=== PATIENT | female | born 1985 | race African-American/Black ===

== ENCOUNTER 2016-11-20 10:47 | Inpatient (IN) | payer OTHER, MEDICARE ==
[~2016-11-20] VITALS: Ht 165.1 cm; Wt 61.2 kg
[2016-11-20] MEDS ORDERED: SODIUM CHLORIDE 0.9% 1,000 ML IV ONE (11:20)
[2016-11-20] MEDS ORDERED: ONDANSETRON HCL 4MG/2ML VIAL IV STA (11:20)
[2016-11-20] MEDS ORDERED: MORPHINE SULFATE 4 MG/ML CPJ (NOT FOR IM USE) IV STA (11:20)
[2016-11-20] MEDS ORDERED: PANTOPRAZOLE SODIUM 40 MG/VIAL IV STA (11:20)
[2016-11-20] MEDS ORDERED: METOCLOPRAMIDE HCL 10MG/2ML VIAL IV STA (11:20)
[2016-11-20 12:15] LABS: BASOPHILS % 0.2 % (0.0-2.0); HEMOGLOBIN. 11.9 g/dL (12.0-16.0); LYMPHOCYTES % 11.6 % (20.0-50.0); MEAN CORPUSCULAR HEMOGLOBIN 30.4 pg (28.0-32.0); MEAN CORPUSCULAR VOLUME 89.9 fL (81.0-99.0); MEAN PLATELET VOLUME 9.2 fl (7.4-10.4); NEUTROPHILS % 83.2 % (40.0-76.0); PLATELET 360 x1000/uL (130-400); RED CELL DISTRIBUTION WIDTH 17.3 % (11.6-14.6)
[2016-11-20 12:24] LABS: INR 1.1; PROTHROMBIN TIME 11.4 sec
[2016-11-20] MEDS ORDERED: DIPHENHYDRAMINE 50MG/ML VIAL IV ONE (12:30)
[2016-11-20] MEDS ORDERED: MORPHINE SULFATE 4 MG/ML CPJ (NOT FOR IM USE) IV ONE (12:30)
[2016-11-20 12:32] LABS: CARBON DIOXIDE 22 mEq/L (21-32); CHLORIDE 107 mEq/L (98-107); ETHANOL BLOOD < 10 mg/dL
[2016-11-20 13:34] LABS: CLARITY URINE CLEAR (CLEAR); COLOR URINE YELLOW (YELLOW); GLUCOSE URINE NEGATIVE (NEGATIVE); KETONES URINE NEGATIVE (NEGATIVE); LEUKOCYTE ESTERASE URINE TRACE (NEGATIVE); NITRITE URINE NEGATIVE (NEGATIVE); OCCULT BLOOD URINE NEGATIVE (NEGATIVE); PH URINE 7.5 (4.5-8.0); PROTEIN URINE TRACE (NEGATIVE); SPECIFIC GRAVITY URINE 1.013 (1.005-1.030); UROBILINOGEN URINE 0.2 E.U./dL (0.2-1.0)
[2016-11-20] MEDS ORDERED: ACETAMINOPHEN 325MG TABLET PO PRN (13:45)
[2016-11-20] MEDS ORDERED: CLONIDINE 0.1MG TABLET PO PRN (13:45)
[2016-11-20] MEDS ORDERED: MAGNESIUM/ALUMINUM HYDROXIDE/SIMETHICONE 30ML UDC PO PRN (13:45)
[2016-11-20] MEDS ORDERED: HYDROCODONE/ACETAMINOPHEN 5/325MG TABLET PO PRN (13:45)
[2016-11-20] MEDS ORDERED: ONDANSETRON HCL 4MG/2ML VIAL IV PRN (13:45)
[2016-11-20] MEDS ORDERED: IPRATROPIUM/ALBUTEROL 0.5-3(2.5)MG/3ML NEB INH PRN (13:45)
[2016-11-20 13:56] LABS: *AMPHETAMINES SCREEN URINE NEGATIVE (NEGATIVE); *BARBITURATES SCREEN URINE NEGATIVE (NEGATIVE); *BENZODIAZEPINES SCREEN URINE NEGATIVE (NEGATIVE); *COCAINE SCREEN URINE NEGATIVE (NEGATIVE); CANNABINOID URINE SCREEN NEGATIVE (NEGATIVE); METHADONE URINE SCREEN NEGATIVE (NEGATIVE); PHENCYCLIDINE URINE SCREEN NEGATIVE (NEGATIVE)
[2016-11-20 13:57] LABS: OPIATES URINE SCREEN PRESUMTIVE POSITIVE (NEGATIVE)
[2016-11-20] MEDS ORDERED: ONDANSETRON HCL 4MG/2ML VIAL IV ONE (14:00)
[2016-11-20] MEDS ORDERED: MORPHINE SULFATE 2 MG/ML CPJ (NOT FOR IM USE) IV ONE ×2 (14:00→16:00)
[2016-11-20 15:36] LABS: CREATINE KINASE 59 IU/L (26-192); CREATINE KINASE MB FRACTION < 0.5 ng/mL (0.5-3.6); TROPONIN I < 0.02 ng/mL (0.00-0.04)
[2016-11-20 16:13] LABS: HEPATITIS B SURFACE ANTIGEN NEGATIVE
[2016-11-20 16:41] LABS: HEPATITIS B CORE AB IGM NEGATIVE
[2016-11-20 16:42] LABS: HEPATITIS A AB IGM NEGATIVE (NEGATIVE)
[2016-11-20 16:45] VITALS: BP 124/80
[2016-11-20] MEDS ORDERED: MORPHINE SULFATE 2 MG/ML CPJ (NOT FOR IM USE) IV PRN (17:30)
[2016-11-20] MEDS ORDERED: SODIUM CHLORIDE 0.9% 1,000 ML IV SCH ×2 (17:30→18:45)
[2016-11-20 17:48] VITALS: BP 124/80
[2016-11-20] MEDS ORDERED: ENOXAPARIN 40MG/0.4ML SYR SUBCUT SCH (18:00)
[2016-11-20] MEDS: ONDANSETRON HCL 4MG/2ML VIAL IV PRN (18:46)
[2016-11-20] MEDS: LORAZEPAM 2MG/ML CPJ IV PRN (18:47)
[2016-11-20] MEDS ORDERED: FOLI-43 PO (20:07)
[2016-11-20] MEDS ORDERED: METO-293 PO (20:13)
[2016-11-20] MEDS ORDERED: ZOLP5TAB8 PO (20:13)
[2016-11-20] MEDS ORDERED: MORP15TA67 PO (20:13)
[2016-11-20] MEDS ORDERED: MORP60TA6 PO (20:13)
[2016-11-20] MEDS ORDERED: FAMO20TA8 PO (20:13)
[2016-11-20] MEDS ORDERED: LORA0.5T2 PO (20:13)
[2016-11-20] MEDS ORDERED: PROM12.511 PO (20:13)
[2016-11-20] MEDS ORDERED: DIPH25CA83 PO (20:19)
[2016-11-20] MEDS ORDERED: HYDR500C18 PO (20:19)
[2016-11-20 21:30] VITALS: BP 131/80
[2016-11-20] MEDS: HYDROMORPHONE HCL/PF 2MG/ML CPJ IV PRN ×2 (21:32→23:40)
[2016-11-20 23:40] VITALS: BP 123/74
[2016-11-20] MEDS: ENOXAPARIN 40MG/0.4ML SYR SUBCUT SCH (23:43)
[2016-11-20] MEDS: PIPERACILLIN/TAZ 3.375G PREMIX 50 ML IV SCH (23:43)
[2016-11-20] MEDS: SODIUM CHLORIDE 0.9% 1,000 ML IV SCH (23:45)
[2016-11-21] MEDS: LORAZEPAM 2MG/ML CPJ IV PRN ×3 (00:49→18:12)
[2016-11-21] MEDS: HYDROMORPHONE HCL/PF 2MG/ML CPJ IV PRN ×6 (01:20→23:50)
[2016-11-21 02:18] LABS: CREATINE KINASE 40 IU/L (26-192); CREATINE KINASE MB FRACTION < 0.5 ng/mL (0.5-3.6); TROPONIN I < 0.02 ng/mL (0.00-0.04)
[2016-11-21] MEDS: PIPERACILLIN/TAZ 3.375G PREMIX 50 ML IV SCH ×4 (03:58→21:16)
[2016-11-21] MEDS: ONDANSETRON HCL 4MG/2ML VIAL IV PRN ×2 (04:26→11:04)
[2016-11-21 04:28] VITALS: BP 110/55
[2016-11-21] MEDS ORDERED: SENN-22 PO ×2 (06:18)
[2016-11-21] MEDS ORDERED: SENN-27 PO (06:26)
[2016-11-21 07:05] LABS: HEMATOCRIT. 29.8 % (36.0-48.0); HEMOGLOBIN. 10.1 g/dL (12.0-16.0); MEAN CORPUSCULAR HEMOGLOBIN 30.4 pg (28.0-32.0); MEAN CORPUSCULAR VOLUME 90.1 fL (81.0-99.0); MEAN PLATELET VOLUME 9.8 fl (7.4-10.4); PLATELET 362 x1000/uL (130-400); RED BLOOD CELL COUNT 3.31 mill/uL (4.2-5.4); RED CELL DISTRIBUTION WIDTH 16.8 % (11.6-14.6)
[2016-11-21] MEDS ORDERED: HYDR-3735 PO (07:21)
[2016-11-21] MEDS ORDERED: HYDROXYZINE 25MG TABLET PO PRN (07:30)
[2016-11-21 07:42] LABS: CARBON DIOXIDE 27 mEq/L (21-32); CHLORIDE 105 mEq/L (98-107); HDL CHOLESTEROL 30 mg/dL (40-59); LDL CHOLESTEROL 84 mg/dL (5-100)
[2016-11-21 08:00] VITALS: BP 100/84
[2016-11-21] MEDS: FOLIC ACID 1MG TABLET PO SCH (08:25)
[2016-11-21] MEDS: FAMOTIDINE 20MG TABLET PO SCH (08:26)
[2016-11-21] MEDS: HYDROXYUREA 500MG CAPSULE PO SCH (08:26)
[2016-11-21] MEDS: SENNOSIDES/DOCUSATE SOD 8.6/50MG TABLET PO SCH (08:27)
[2016-11-21] MEDS: KETOROLAC 30MG/ML VIAL IV PRN ×2 (08:29→20:01)
[2016-11-21] MEDS ORDERED: PANTOPRAZOLE SODIUM 40 MG/VIAL IV SCH ×2 (09:00)
[2016-11-21] MEDS ORDERED: FOLIC ACID 1MG TABLET PO SCH ×2 (09:00)
[2016-11-21] MEDS ORDERED: SENNOSIDES 8.6MG TABLET PO SCH (09:00)
[2016-11-21 12:00] VITALS: BP 111/72
[2016-11-21] MEDS: SODIUM CHLORIDE 0.9% 1,000 ML IV SCH (12:06)
[2016-11-21 13:02] LABS: PLATELET ESTIMATE NORMAL
[2016-11-21] MEDS ORDERED: HYDROXYZINE 10 MG TABLET PO PRN (13:45)
[2016-11-21] MEDS: MORPHINE SULFATE 2 MG/ML CPJ (NOT FOR IM USE) IV PRN ×3 (14:00→17:25)
[2016-11-21] MEDS: DIPHENHYDRAMINE 50MG/ML VIAL IV PRN (14:03)
[2016-11-21 16:00] VITALS: BP 135/77
[2016-11-21 19:59] VITALS: BP 100/66
[2016-11-21] MEDS: ENOXAPARIN 40MG/0.4ML SYR SUBCUT SCH (23:31)
[2016-11-21 23:45] VITALS: BP 104/76
[2016-11-22] VITALS (8 sets, daily range): BP systolic 102–144; BP diastolic 64–99
[2016-11-22] MEDS: DIPHENHYDRAMINE 50MG/ML VIAL IV PRN ×4 (00:29→17:11)
[2016-11-22] MEDS: ONDANSETRON HCL 4MG/2ML VIAL IV PRN ×3 (00:29→16:00)
[2016-11-22] MEDS: LORAZEPAM 2MG/ML CPJ IV PRN ×2 (01:09→18:22)
[2016-11-22] MEDS: MORPHINE SULFATE 2 MG/ML CPJ (NOT FOR IM USE) IV PRN ×9 (01:54→20:44)
[2016-11-22] MEDS: PIPERACILLIN/TAZ 3.375G PREMIX 50 ML IV SCH ×4 (02:03→21:42)
[2016-11-22] MEDS: SODIUM CHLORIDE 0.9% 1,000 ML IV SCH ×2 (02:04→15:59)
[2016-11-22] MEDS: HYDROMORPHONE HCL/PF 2MG/ML CPJ IV PRN ×9 (02:50→22:46)
[2016-11-22] MEDS: SENNOSIDES/DOCUSATE SOD 8.6/50MG TABLET PO SCH (08:12)
[2016-11-22] MEDS: FAMOTIDINE 20MG TABLET PO SCH (08:12)
[2016-11-22] MEDS: FOLIC ACID 1MG TABLET PO SCH (08:12)
[2016-11-22] MEDS: HYDROXYUREA 500MG CAPSULE PO SCH (08:12)
[2016-11-22] MEDS ORDERED: DIATR MEGLU/DIATRIZOATE SOLN 30ML PO NR (09:30)
[2016-11-22] MEDS ORDERED: PANTOPRAZOLE 40MG DR TABLET PO SCH ×2 (10:30→11:15)
[2016-11-22 11:13] LABS: UCG SCREEN NEGATIVE
[2016-11-22] MEDS ORDERED: HYDROMORPHONE HCL/PF 2MG/ML CPJ IV PRN (12:00)
[2016-11-22] MEDS ORDERED: IOHEXOL-300 100 ML BOTTLE ONE (13:06)
[2016-11-22] MEDS ORDERED: SODIUM CHLORIDE 0.9% 10ML VIAL ONE (13:06)
[2016-11-22 15:17] LABS: BASOPHILS % 1.1 % (0.0-2.0); EOSINOPHILS % 0.4 % (0.0-5.0); HEMATOCRIT. 28.5 % (36.0-48.0); HEMOGLOBIN. 9.6 g/dL (12.0-16.0); LYMPHOCYTES % 43.5 % (20.0-50.0); MEAN CORPUSCULAR HEMOGLOBIN 30.6 pg (28.0-32.0); MEAN CORPUSCULAR VOLUME 90.6 fL (81.0-99.0); MEAN PLATELET VOLUME 9.7 fl (7.4-10.4); MONOCYTES % 12.6 % (2.0-8.0); NEUTROPHILS % 42.4 % (40.0-76.0); PLATELET 368 x1000/uL (130-400); RED BLOOD CELL COUNT 3.15 mill/uL (4.2-5.4); RED CELL DISTRIBUTION WIDTH 16.4 % (11.6-14.6)
[2016-11-22 15:18] LABS: CHLORIDE 106 mEq/L (98-107)
[2016-11-22 15:26] LABS: CARBON DIOXIDE 25 mEq/L (21-32)
[2016-11-22] MEDS: PANTOPRAZOLE SODIUM 40 MG/VIAL IV SCH (16:00)
[2016-11-22] MEDS ORDERED: POTASSIUM CHLORIDE 20MEQ TABLET SR PO SCH (16:30)
[2016-11-22 21:01] LABS: TOTAL IRON BINDING CAPACITY 168 ug/dL (250-450)
[2016-11-22 21:27] LABS: VITAMIN B12 SERUM 536 pg/mL (211-911)
[2016-11-22 21:39] LABS: FERRITIN 15629 ng/mL (10-291)
[2016-11-22] MEDS: ENOXAPARIN 40MG/0.4ML SYR SUBCUT SCH (22:55)
[2016-11-23] MEDS: ONDANSETRON HCL 4MG/2ML VIAL IV PRN ×5 (00:15→23:24)
[2016-11-23] MEDS: MORPHINE SULFATE 2 MG/ML CPJ (NOT FOR IM USE) IV PRN ×4 (00:20→12:19)
[2016-11-23] MEDS: DIPHENHYDRAMINE 50MG/ML VIAL IV PRN ×4 (00:20→21:21)
[2016-11-23] MEDS: HYDROMORPHONE HCL/PF 2MG/ML CPJ IV PRN ×8 (01:36→23:27)
[2016-11-23] MEDS: PIPERACILLIN/TAZ 3.375G PREMIX 50 ML IV SCH ×4 (02:40→20:30)
[2016-11-23 04:00] VITALS: BP 100/60
[2016-11-23] MEDS: SODIUM CHLORIDE 0.9% 1,000 ML IV SCH ×2 (05:56→18:05)
[2016-11-23 08:00] VITALS: BP 113/72
[2016-11-23] MEDS: FOLIC ACID 1MG TABLET PO SCH (08:36)
[2016-11-23] MEDS: PANTOPRAZOLE SODIUM 40 MG/VIAL IV SCH ×2 (08:36→17:55)
[2016-11-23] MEDS: HYDROXYUREA 500MG CAPSULE PO SCH (08:37)
[2016-11-23] MEDS: SENNOSIDES/DOCUSATE SOD 8.6/50MG TABLET PO SCH ×3 (08:37→17:55)
[2016-11-23] MEDS: LORAZEPAM 2MG/ML CPJ IV PRN ×3 (08:37→23:24)
[2016-11-23] MEDS ORDERED: NA PHOS,M-B/NA PHOS,DI-BA ENEMA 118ML PR PRN (09:30)
[2016-11-23 12:00] VITALS: BP 97/56
[2016-11-23] MEDS: METOCLOPRAMIDE HCL 10MG TABLET PO PRN (12:21)
[2016-11-23] MEDS ORDERED: NALOXONE INJ IV PRN (14:00)
[2016-11-23] MEDS ORDERED: DIPHENHYDRAMINE INJ IV PRN (14:00)
[2016-11-23] MEDS: MORPHINE PCA 50MG/50ML IV PRN (15:09)
[2016-11-23 20:00] VITALS: BP 111/61
[2016-11-23] MEDS: ZOLPIDEM TARTRATE 5MG TABLET PO SCH (20:22)
[2016-11-23] MEDS: ENOXAPARIN 40MG/0.4ML SYR SUBCUT SCH (23:28)
[2016-11-24] VITALS: BP 113/68
[2016-11-24] MEDS: DIPHENHYDRAMINE 50MG/ML VIAL IV PRN ×6 (02:28→23:39)
[2016-11-24] MEDS: PIPERACILLIN/TAZ 3.375G PREMIX 50 ML IV SCH ×2 (02:29→10:12)
[2016-11-24] MEDS: HYDROMORPHONE HCL/PF 2MG/ML CPJ IV PRN ×8 (02:31→23:42)
[2016-11-24 04:25] VITALS: BP 110/63
[2016-11-24] MEDS: ONDANSETRON HCL 4MG/2ML VIAL IV PRN ×3 (04:44→17:17)
[2016-11-24 08:00] VITALS: BP 113/73
[2016-11-24] MEDS: LORAZEPAM 2MG/ML CPJ IV PRN ×5 (10:04→23:39)
[2016-11-24] MEDS: SENNOSIDES/DOCUSATE SOD 8.6/50MG TABLET PO SCH ×2 (10:11→17:15)
[2016-11-24] MEDS: PANTOPRAZOLE SODIUM 40 MG/VIAL IV SCH (10:11)
[2016-11-24] MEDS: FOLIC ACID 1MG TABLET PO SCH (10:11)
[2016-11-24] MEDS: METOCLOPRAMIDE HCL 10MG TABLET PO PRN (10:11)
[2016-11-24] MEDS: MORPHINE PCA 50MG/50ML IV PRN (10:47)
[2016-11-24] MEDS: HYDROXYUREA 500MG CAPSULE PO SCH (11:29)
[2016-11-24] MEDS: SODIUM CHLORIDE 0.9% 1,000 ML IV SCH ×2 (11:30→23:38)
[2016-11-24 11:44] VITALS: BP 99/59
[2016-11-24 12:06] LABS: BASOPHILS % 1.2 % (0.0-2.0); EOSINOPHILS % 3.9 % (0.0-5.0); HEMATOCRIT. 26.4 % (36.0-48.0); HEMOGLOBIN. 9.2 g/dL (12.0-16.0); LYMPHOCYTES % 32.2 % (20.0-50.0); MEAN CORPUSCULAR HEMOGLOBIN 30.9 pg (28.0-32.0); MEAN CORPUSCULAR VOLUME 88.8 fL (81.0-99.0); MEAN PLATELET VOLUME 9.4 fl (7.4-10.4); MONOCYTES % 11.6 % (2.0-8.0); NEUTROPHILS % 51.1 % (40.0-76.0); PLATELET 435 x1000/uL (130-400); RED BLOOD CELL COUNT 2.97 mill/uL (4.2-5.4); RED CELL DISTRIBUTION WIDTH 16.8 % (11.6-14.6)
[2016-11-24 12:17] LABS: CARBON DIOXIDE 27 mEq/L (21-32); CHLORIDE 106 mEq/L (98-107)
[2016-11-24] MEDS ORDERED: METOCLOPRAMIDE HCL 10MG TABLET PO NR (13:00)
[2016-11-24] MEDS ORDERED: DIPHENHYDRAMINE 50MG/ML VIAL IV PRN ×2 (14:00)
[2016-11-24 16:00] VITALS: BP 102/69
[2016-11-24] MEDS: METOCLOPRAMIDE HCL 10MG TABLET PO SCH ×2 (17:15→23:38)
[2016-11-24] MEDS ORDERED: MORPHINE PCA 50MG/50ML IV PRN (19:30)
[2016-11-24 20:00] VITALS: BP 110/65
[2016-11-24] MEDS: ZOLPIDEM TARTRATE 5MG TABLET PO SCH (20:34)
[2016-11-24] MEDS: PANTOPRAZOLE 40MG DR TABLET PO SCH (20:34)
[2016-11-24] MEDS: ENOXAPARIN 40MG/0.4ML SYR SUBCUT SCH (23:38)
[2016-11-25] VITALS: BP 100/60
[2016-11-25] MEDS: LORAZEPAM 2MG/ML CPJ IV PRN ×7 (02:41→21:12)
[2016-11-25] MEDS: DIPHENHYDRAMINE 50MG/ML VIAL IV PRN ×7 (02:41→21:12)
[2016-11-25] MEDS: ONDANSETRON HCL 4MG/2ML VIAL IV PRN ×2 (02:41→15:48)
[2016-11-25] MEDS: HYDROMORPHONE HCL/PF 2MG/ML CPJ IV PRN ×7 (02:43→21:12)
[2016-11-25] MEDS: METOCLOPRAMIDE HCL 10MG TABLET PO SCH ×3 (06:10→17:49)
[2016-11-25] MEDS: PANTOPRAZOLE 40MG DR TABLET PO SCH (06:10)
[2016-11-25 08:00] VITALS: BP 99/60
[2016-11-25] MEDS: FOLIC ACID 1MG TABLET PO SCH (08:47)
[2016-11-25] MEDS: SENNOSIDES/DOCUSATE SOD 8.6/50MG TABLET PO SCH ×2 (08:47→17:49)
[2016-11-25] MEDS: HYDROXYUREA 500MG CAPSULE PO SCH (08:48)
[2016-11-25 12:00] VITALS: BP 113/69
[2016-11-25] MEDS ORDERED: POTASSIUM CHLORIDE 20MEQ TABLET SR PO NR (12:00)
[2016-11-25] MEDS: SODIUM CHLORIDE 0.9% 1,000 ML IV SCH (12:30)
[2016-11-25 16:00] VITALS: BP 102/58
[2016-11-25] MEDS: ZOLPIDEM TARTRATE 5MG TABLET PO SCH (21:08)
[2016-11-25 21:35] VITALS: BP 94/58
[2016-11-25] MEDS: ENOXAPARIN 40MG/0.4ML SYR SUBCUT SCH (22:49)
[2016-11-26] VITALS: BP 116/80
[2016-11-26] MEDS: METOCLOPRAMIDE HCL 10MG TABLET PO SCH ×2 (00:04→05:40)
[2016-11-26] MEDS: DIPHENHYDRAMINE 50MG/ML VIAL IV PRN ×7 (00:06→20:45)
[2016-11-26] MEDS: LORAZEPAM 2MG/ML CPJ IV PRN ×7 (00:09→20:29)
[2016-11-26] MEDS: HYDROMORPHONE HCL/PF 2MG/ML CPJ IV PRN ×7 (00:09→20:51)
[2016-11-26] MEDS: MORPHINE PCA 50 ML IV PRN ×3 (00:45→21:59)
[2016-11-26] MEDS: SODIUM CHLORIDE 0.9% 1,000 ML IV SCH ×2 (03:08→16:30)
[2016-11-26] MEDS: ONDANSETRON HCL 4MG/2ML VIAL IV PRN ×3 (03:34→20:29)
[2016-11-26 04:00] VITALS: BP 105/56
[2016-11-26 08:00] VITALS: BP 95/57
[2016-11-26] MEDS ORDERED: FAMOTIDINE 20MG TABLET PO SCH (09:00)
[2016-11-26] MEDS: HYDROXYUREA 500MG CAPSULE PO SCH (09:41)
[2016-11-26] MEDS: SENNOSIDES/DOCUSATE SOD 8.6/50MG TABLET PO SCH ×2 (09:41→16:29)
[2016-11-26] MEDS: FOLIC ACID 1MG TABLET PO SCH (09:41)
[2016-11-26 12:00] VITALS: BP 106/69
[2016-11-26] MEDS ORDERED: DOCUSATE SODIUM 250MG CAPSULE PO PRN (13:30)
[2016-11-26 16:00] VITALS: BP 103/67
[2016-11-26] MEDS: METOCLOPRAMIDE HCL 10MG/2ML VIAL IV SCH (16:30)
[2016-11-26 20:00] VITALS: BP 106/67
[2016-11-26] MEDS: PANTOPRAZOLE SODIUM 40 MG/VIAL IV SCH (20:27)
[2016-11-26] MEDS: ZOLPIDEM TARTRATE 5MG TABLET PO SCH (20:28)
[2016-11-27] VITALS (7 sets, daily range): BP systolic 100–176; BP diastolic 66–89
[2016-11-27] MEDS: ENOXAPARIN 40MG/0.4ML SYR SUBCUT SCH ×2 (00:18→21:42)
[2016-11-27] MEDS: LORAZEPAM 2MG/ML CPJ IV PRN ×7 (00:19→21:39)
[2016-11-27] MEDS: DIPHENHYDRAMINE 50MG/ML VIAL IV PRN ×7 (00:22→21:40)
[2016-11-27] MEDS: HYDROMORPHONE HCL/PF 2MG/ML CPJ IV PRN ×9 (00:26→21:39)
[2016-11-27] MEDS: SODIUM CHLORIDE 0.9% 1,000 ML IV SCH ×3 (06:24→23:07)
[2016-11-27] MEDS: PANTOPRAZOLE SODIUM 40 MG/VIAL IV SCH ×2 (08:08→21:03)
[2016-11-27] MEDS: METOCLOPRAMIDE HCL 10MG/2ML VIAL IV SCH ×3 (08:09→15:50)
[2016-11-27] MEDS: FOLIC ACID 1MG TABLET PO SCH (08:09)
[2016-11-27] MEDS: SENNOSIDES/DOCUSATE SOD 8.6/50MG TABLET PO SCH ×2 (08:09→15:50)
[2016-11-27] MEDS: HYDROXYUREA 500MG CAPSULE PO SCH (09:17)
[2016-11-27] MEDS: MORPHINE PCA 50 ML IV PRN ×2 (09:47→20:43)
[2016-11-27] MEDS ORDERED: SORBITOL 70% SOLN 30ML PO NR (16:30)
[2016-11-27 17:19] LABS: BASOPHILS % 1.3 % (0.0-2.0); EOSINOPHILS % 4.5 % (0.0-5.0); HEMATOCRIT. 25.1 % (36.0-48.0); HEMOGLOBIN. 8.5 g/dL (12.0-16.0); LYMPHOCYTES % 35.6 % (20.0-50.0); MEAN CORPUSCULAR HEMOGLOBIN 30.9 pg (28.0-32.0); MEAN CORPUSCULAR VOLUME 90.8 fL (81.0-99.0); MEAN PLATELET VOLUME 8.6 fl (7.4-10.4); MONOCYTES % 10.8 % (2.0-8.0); NEUTROPHILS % 47.8 % (40.0-76.0); PLATELET 472 x1000/uL (130-400); RED BLOOD CELL COUNT 2.76 mill/uL (4.2-5.4); RED CELL DISTRIBUTION WIDTH 17.2 % (11.6-14.6)
[2016-11-27 17:44] LABS: CARBON DIOXIDE 26 mEq/L (21-32); CHLORIDE 108 mEq/L (98-107)
[2016-11-27] MEDS: ZOLPIDEM TARTRATE 5MG TABLET PO SCH (21:04)
[2016-11-27] MEDS: ONDANSETRON INJ IV PRN (21:48)
[2016-11-28] VITALS (7 sets, daily range): BP systolic 101–116; BP diastolic 62–77
[2016-11-28] MEDS: HYDROMORPHONE HCL/PF 2MG/ML CPJ IV PRN ×8 (00:27→21:11)
[2016-11-28] MEDS: DIPHENHYDRAMINE 50MG/ML VIAL IV PRN ×7 (02:39→21:10)
[2016-11-28] MEDS: LORAZEPAM 2MG/ML CPJ IV PRN ×7 (02:39→21:24)
[2016-11-28 06:53] LABS: BASOPHILS % 1.1 % (0.0-2.0); EOSINOPHILS % 3.1 % (0.0-5.0); HEMATOCRIT. 24.7 % (36.0-48.0); HEMOGLOBIN. 8.5 g/dL (12.0-16.0); LYMPHOCYTES % 34.7 % (20.0-50.0); MEAN CORPUSCULAR HEMOGLOBIN 31.4 pg (28.0-32.0); MEAN PLATELET VOLUME 9.1 fl (7.4-10.4); MONOCYTES % 10.7 % (2.0-8.0); NEUTROPHILS % 50.4 % (40.0-76.0); PLATELET 484 x1000/uL (130-400); RED BLOOD CELL COUNT 2.71 mill/uL (4.2-5.4); RED CELL DISTRIBUTION WIDTH 17.3 % (11.6-14.6)
[2016-11-28] MEDS: METOCLOPRAMIDE HCL 10MG/2ML VIAL IV SCH ×3 (08:37→17:58)
[2016-11-28] MEDS: SENNOSIDES/DOCUSATE SOD 8.6/50MG TABLET PO SCH ×2 (08:37→17:58)
[2016-11-28] MEDS: FOLIC ACID 1MG TABLET PO SCH (08:37)
[2016-11-28] MEDS: PANTOPRAZOLE SODIUM 40 MG/VIAL IV SCH ×2 (08:37→21:08)
[2016-11-28] MEDS: HYDROXYUREA 500MG CAPSULE PO SCH (08:38)
[2016-11-28] MEDS: MORPHINE PCA 50 ML IV PRN ×2 (12:28→22:11)
[2016-11-28] MEDS ORDERED: IRON SUCROSE COMPLEX 100 MG/5 ML ML IV SCH (13:00)
[2016-11-28 13:07] LABS: HGB A 72.6 % (94.0-98.0); HGB A2 2.9 % (0.7-3.1); HGB F 6.4 % (0.0-2.0); HGB S 18.1 % (0.0); HGB SOLUBILITY Positive (Negative)
[2016-11-28] MEDS: SODIUM CHLORIDE 0.9% 1,000 ML IV SCH (14:28)
[2016-11-28] MEDS ORDERED: FUROSEMIDE 40MG/4ML VIAL IVP SCH (14:30)
[2016-11-28] MEDS ORDERED: DIPHENHYDRAMINE 50MG/ML VIAL IV SCH (14:30)
[2016-11-28] MEDS ORDERED: ACETAMINOPHEN 325MG TABLET PO SCH (14:30)
[2016-11-28] MEDS: ZOLPIDEM TARTRATE 5MG TABLET PO SCH (21:09)
[2016-11-28] MEDS: ONDANSETRON INJ IV PRN (23:52)
[2016-11-28] MEDS: ENOXAPARIN 40MG/0.4ML SYR SUBCUT SCH (23:52)
[2016-11-29] VITALS (12 sets, daily range): BP systolic 99–121; BP diastolic 50–77
[2016-11-29] MEDS: HYDROMORPHONE HCL/PF 2MG/ML CPJ IV PRN ×8 (00:09→23:55)
[2016-11-29] MEDS: DIPHENHYDRAMINE 50MG/ML VIAL IV PRN ×8 (00:29→23:55)
[2016-11-29] MEDS: LORAZEPAM 2MG/ML CPJ IV PRN ×8 (00:29→23:55)
[2016-11-29] MEDS: SODIUM CHLORIDE 0.9% 1,000 ML IV SCH ×2 (06:19→20:20)
[2016-11-29] MEDS: SENNOSIDES/DOCUSATE SOD 8.6/50MG TABLET PO SCH ×2 (08:06→16:56)
[2016-11-29] MEDS: HYDROXYUREA 500MG CAPSULE PO SCH (08:06)
[2016-11-29] MEDS: FOLIC ACID 1MG TABLET PO SCH (08:07)
[2016-11-29] MEDS: PANTOPRAZOLE SODIUM 40 MG/VIAL IV SCH ×2 (08:07→20:51)
[2016-11-29] MEDS: METOCLOPRAMIDE HCL 10MG/2ML VIAL IV SCH ×3 (08:09→16:56)
[2016-11-29] MEDS ORDERED: SODIUM CHLORIDE 0.9% IV NR (09:00)
[2016-11-29] MEDS ORDERED: DEFEROXAMINE MESYLATE IV NR (09:00)
[2016-11-29 11:49] LABS: BASOPHILS % 0.9 % (0.0-2.0); EOSINOPHILS % 3.6 % (0.0-5.0); HEMATOCRIT. 27.3 % (36.0-48.0); HEMOGLOBIN. 9.5 g/dL (12.0-16.0); LYMPHOCYTES % 35.2 % (20.0-50.0); MEAN CORPUSCULAR HEMOGLOBIN 31.1 pg (28.0-32.0); MEAN CORPUSCULAR VOLUME 89.7 fL (81.0-99.0); MONOCYTES % 9.7 % (2.0-8.0); NEUTROPHILS % 50.6 % (40.0-76.0); RED BLOOD CELL COUNT 3.05 mill/uL (4.2-5.4); RED CELL DISTRIBUTION WIDTH 16.8 % (11.6-14.6)
[2016-11-29] MEDS ORDERED: MORPHINE SULFATE 4 MG/ML CPJ (NOT FOR IM USE) IV NR (12:15)
[2016-11-29] MEDS: MORPHINE PCA 50 ML IV PRN ×2 (12:28→20:55)
[2016-11-29] MEDS: DOCUSATE SODIUM 250MG CAPSULE PO SCH (16:56)
[2016-11-29] MEDS: LACTULOSE 20G/30ML UDC PO PRN (16:56)
[2016-11-29] MEDS ORDERED: FUROSEMIDE 40MG/4ML VIAL IVP NR (18:30)
[2016-11-29] MEDS: NYSTATIN 100,000 UNITS/ML 5ML UDC SSW SCH ×2 (18:43→23:55)
[2016-11-29 19:14] LABS: BASOPHILS % 0.8 % (0.0-2.0); EOSINOPHILS % 3.8 % (0.0-5.0); HEMATOCRIT. 27.6 % (36.0-48.0); HEMOGLOBIN. 9.3 g/dL (12.0-16.0); MEAN CORPUSCULAR HEMOGLOBIN 30.3 pg (28.0-32.0); MEAN CORPUSCULAR VOLUME 89.7 fL (81.0-99.0); MEAN PLATELET VOLUME 8.6 fl (7.4-10.4); MONOCYTES % 9.9 % (2.0-8.0); NEUTROPHILS % 50.5 % (40.0-76.0); PLATELET 175 x1000/uL (130-400); RED BLOOD CELL COUNT 3.08 mill/uL (4.2-5.4); RED CELL DISTRIBUTION WIDTH 16.8 % (11.6-14.6)
[2016-11-29] MEDS: METRONIDAZOLE 500MG TABLET PO SCH (20:50)
[2016-11-29] MEDS: ZOLPIDEM TARTRATE 5MG TABLET PO SCH (20:51)
[2016-11-29] MEDS: ENOXAPARIN 40MG/0.4ML SYR SUBCUT SCH (23:56)
[2016-11-30] VITALS (11 sets, daily range): BP systolic 99–115; BP diastolic 34–73
[2016-11-30] MEDS: HYDROMORPHONE HCL/PF 2MG/ML CPJ IV PRN ×5 (02:52→17:56)
[2016-11-30] MEDS: DIPHENHYDRAMINE 50MG/ML VIAL IV PRN ×5 (02:52→17:54)
[2016-11-30] MEDS: LORAZEPAM 2MG/ML CPJ IV PRN ×4 (02:52→17:45)
[2016-11-30] MEDS: MORPHINE PCA 50 ML IV PRN ×3 (05:04→21:22)
[2016-11-30] MEDS: SODIUM CHLORIDE 0.9% 1,000 ML IV SCH ×3 (05:10→23:00)
[2016-11-30] MEDS: NYSTATIN 100,000 UNITS/ML 5ML UDC SSW SCH ×3 (05:46→17:39)
[2016-11-30] MEDS: HYDROXYUREA 500MG CAPSULE PO SCH ×2 (09:00→12:56)
[2016-11-30] MEDS: PANTOPRAZOLE SODIUM 40 MG/VIAL IV SCH ×2 (09:20→20:56)
[2016-11-30] MEDS: SENNOSIDES/DOCUSATE SOD 8.6/50MG TABLET PO SCH ×2 (09:21→17:39)
[2016-11-30] MEDS: METRONIDAZOLE 500MG TABLET PO SCH ×2 (09:21→20:56)
[2016-11-30] MEDS: FOLIC ACID 1MG TABLET PO SCH (09:21)
[2016-11-30] MEDS: DOCUSATE SODIUM 250MG CAPSULE PO SCH ×2 (09:21→17:39)
[2016-11-30] MEDS: METOCLOPRAMIDE HCL 10MG TABLET PO PRN (09:21)
[2016-11-30] MEDS: METOCLOPRAMIDE HCL 10MG/2ML VIAL IV SCH ×3 (09:39→17:39)
[2016-11-30] MEDS ORDERED: HYDROXYZINE 25MG TABLET PO PRN (11:00)
[2016-11-30] MEDS ORDERED: LEVOFLOXACIN 500MG TABLET PO NR (13:00)
[2016-11-30] MEDS ORDERED: MAGNESIUM CITRATE 300ML SOLUTION PO ONE (15:15)
[2016-11-30] MEDS ORDERED: FUROSEMIDE 40MG/4ML VIAL IVP NR (15:30)
[2016-11-30 17:00] LABS: HEMATOCRIT. 26.8 % (36.0-48.0); HEMOGLOBIN. 9.6 g/dL (12.0-16.0); MEAN CORPUSCULAR HEMOGLOBIN 31.8 pg (28.0-32.0); MEAN CORPUSCULAR VOLUME 89.3 fL (81.0-99.0); PLATELET 401 x1000/uL (130-400); RED BLOOD CELL COUNT 3.01 mill/uL (4.2-5.4); RED CELL DISTRIBUTION WIDTH 17.7 % (11.6-14.6)
[2016-11-30 17:17] LABS: CARBON DIOXIDE 28 mEq/L (21-32); CHLORIDE 105 mEq/L (98-107)
[2016-11-30 18:11] LABS: PLATELET ESTIMATE NORMAL
[2016-11-30] MEDS: ZOLPIDEM TARTRATE 5MG TABLET PO SCH (20:56)
[2016-11-30] MEDS: ONDANSETRON INJ IV PRN (21:30)
[2016-12-01] VITALS (17 sets, daily range): BP systolic 98–137; BP diastolic 58–82
[2016-12-01] MEDS: LORAZEPAM 2MG/ML CPJ IV PRN ×9 (00:01→23:33)
[2016-12-01] MEDS: DIPHENHYDRAMINE 50MG/ML VIAL IV PRN ×9 (00:01→23:32)
[2016-12-01] MEDS: HYDROMORPHONE HCL/PF 2MG/ML CPJ IV PRN ×9 (00:05→23:33)
[2016-12-01] MEDS: NYSTATIN 100,000 UNITS/ML 5ML UDC SSW SCH ×5 (00:07→23:32)
[2016-12-01] MEDS: ENOXAPARIN 40MG/0.4ML SYR SUBCUT SCH ×2 (00:08→23:34)
[2016-12-01] MEDS: LACTULOSE 20G/30ML UDC PO PRN ×2 (03:27→20:29)
[2016-12-01] MEDS: ONDANSETRON INJ IV PRN (03:28)
[2016-12-01] MEDS: MORPHINE PCA 50 ML IV PRN ×3 (04:37→19:04)
[2016-12-01] MEDS: SENNOSIDES/DOCUSATE SOD 8.6/50MG TABLET PO SCH ×2 (08:30→17:27)
[2016-12-01] MEDS: DOCUSATE SODIUM 250MG CAPSULE PO SCH ×2 (08:31→17:27)
[2016-12-01] MEDS: METOCLOPRAMIDE HCL 10MG/2ML VIAL IV SCH ×3 (08:31→17:28)
[2016-12-01] MEDS: FOLIC ACID 1MG TABLET PO SCH (08:31)
[2016-12-01] MEDS: PANTOPRAZOLE SODIUM 40 MG/VIAL IV SCH ×2 (08:34→20:29)
[2016-12-01] MEDS: METRONIDAZOLE 500MG TABLET PO SCH ×2 (08:36→20:29)
[2016-12-01] MEDS: LEVOFLOXACIN 500MG TABLET PO SCH (11:36)
[2016-12-01] MEDS: SODIUM CHLORIDE 0.9% 1,000 ML IV SCH (11:38)
[2016-12-01] MEDS ORDERED: FUROSEMIDE 20MG/2ML VIAL IVP NR (18:27)
[2016-12-01] MEDS: ZOLPIDEM TARTRATE 5MG TABLET PO SCH (20:30)
[2016-12-01 23:35] LABS: HEMATOCRIT 35.9 % (36.0-48.0); HEMOGLOBIN 12.2 g/dL (12.0-16.0); MEAN CORPUSCULAR HEMOGLOBIN 29.4 pg (28.0-32.0); MEAN CORPUSCULAR VOLUME 86.7 fL (81.0-99.0); PLATELET 394 x1000/uL (130-400); RED BLOOD CELL COUNT 4.14 mill/uL (4.2-5.4); RED CELL DISTRIBUTION WIDTH 18.4 % (11.6-14.6)
[2016-12-02] VITALS (11 sets, daily range): BP systolic 100–132; BP diastolic 56–82
[2016-12-02] MEDS: MORPHINE PCA 50 ML IV PRN ×4 (02:13→22:55)
[2016-12-02] MEDS: LORAZEPAM 2MG/ML CPJ IV PRN ×7 (02:34→21:54)
[2016-12-02] MEDS: DIPHENHYDRAMINE 50MG/ML VIAL IV PRN ×7 (02:34→21:54)
[2016-12-02] MEDS: HYDROMORPHONE HCL/PF 2MG/ML CPJ IV PRN ×8 (02:34→21:55)
[2016-12-02] MEDS: ONDANSETRON INJ IV PRN (02:34)
[2016-12-02] MEDS: SODIUM CHLORIDE 0.9% 1,000 ML IV SCH ×2 (02:47→15:52)
[2016-12-02] MEDS: NYSTATIN 100,000 UNITS/ML 5ML UDC SSW SCH ×3 (05:36→17:59)
[2016-12-02 06:30] LABS: HEMATOCRIT 32.4 % (36.0-48.0); HEMOGLOBIN 11.1 g/dL (12.0-16.0); MEAN CORPUSCULAR HEMOGLOBIN 29.8 pg (28.0-32.0); MEAN CORPUSCULAR VOLUME 86.9 fL (81.0-99.0); PLATELET 361 x1000/uL (130-400); RED BLOOD CELL COUNT 3.73 mill/uL (4.2-5.4); RED CELL DISTRIBUTION WIDTH 18.5 % (11.6-14.6)
[2016-12-02 06:46] LABS: HCG SCREEN POSITIVE
[2016-12-02 06:57] LABS: CARBON DIOXIDE 24 mEq/L (21-32); CHLORIDE 105 mEq/L (98-107)
[2016-12-02] MEDS ORDERED: LORAZEPAM 2MG/ML CPJ IV SCH (08:00)
[2016-12-02] MEDS ORDERED: DIPHENHYDRAMINE 50MG/ML VIAL IV ONE (08:00)
[2016-12-02] MEDS ORDERED: HYDROMORPHONE HCL/PF 2MG/ML CPJ IV SCH (08:00)
[2016-12-02] MEDS: LEVOFLOXACIN 500MG TABLET PO SCH (10:32)
[2016-12-02] MEDS: METOCLOPRAMIDE HCL 10MG/2ML VIAL IV SCH ×3 (10:33→17:59)
[2016-12-02] MEDS: SENNOSIDES/DOCUSATE SOD 8.6/50MG TABLET PO SCH ×2 (10:34→17:00)
[2016-12-02] MEDS: METRONIDAZOLE 500MG TABLET PO SCH ×2 (10:34→21:31)
[2016-12-02] MEDS: PANTOPRAZOLE SODIUM 40 MG/VIAL IV SCH (10:34)
[2016-12-02] MEDS: FOLIC ACID 1MG TABLET PO SCH (10:34)
[2016-12-02] MEDS: DOCUSATE SODIUM 250MG CAPSULE PO SCH ×2 (10:34→17:00)
[2016-12-02] MEDS: HYDROXYUREA 500MG CAPSULE PO SCH (10:35)
[2016-12-02 13:03] LABS: TOTAL IRON BINDING CAPACITY 185 ug/dL (250-450)
[2016-12-02] MEDS: SIMETHICONE 80MG TABLET CHEW PO SCH ×3 (13:13→21:31)
[2016-12-02] MEDS ORDERED: MAGNESIUM CITRATE 300ML SOLUTION PO NR (16:30)
[2016-12-02] MEDS: OMEPRAZOLE 20MG CAPSULE EXTENDED RELEASE PO SCH (17:59)
[2016-12-02] MEDS: LACTULOSE 20G/30ML UDC PO PRN (17:59)
[2016-12-02] MEDS ORDERED: ZOLPIDEM TARTRATE 5MG TABLET PO PRN (21:00)
[2016-12-02] MEDS: ENOXAPARIN 40MG/0.4ML SYR SUBCUT SCH (23:03)
[2016-12-03] VITALS (10 sets, daily range): BP systolic 107–126; BP diastolic 64–81
[2016-12-03] MEDS: NYSTATIN 100,000 UNITS/ML 5ML UDC SSW SCH ×5 (00:52→23:41)
[2016-12-03] MEDS: LORAZEPAM 2MG/ML CPJ IV PRN ×8 (00:55→21:44)
[2016-12-03] MEDS: DIPHENHYDRAMINE 50MG/ML VIAL IV PRN ×8 (00:55→21:45)
[2016-12-03] MEDS: HYDROMORPHONE HCL/PF 2MG/ML CPJ IV PRN ×8 (00:58→21:45)
[2016-12-03] MEDS: MORPHINE PCA 50 ML IV PRN (04:50)
[2016-12-03] MEDS: LACTULOSE 20G/30ML UDC PO PRN ×2 (06:38→14:38)
[2016-12-03] MEDS: MORPHINE SULFATE 15MG TABLET SR PO SCH ×3 (06:42→21:41)
[2016-12-03] MEDS: OMEPRAZOLE 20MG CAPSULE EXTENDED RELEASE PO SCH ×2 (06:45→17:39)
[2016-12-03] MEDS: METRONIDAZOLE 500MG TABLET PO SCH ×3 (06:45→21:38)
[2016-12-03] MEDS: SODIUM CHLORIDE 0.9% 1,000 ML IV SCH ×2 (06:53→21:49)
[2016-12-03] MEDS: SIMETHICONE 80MG TABLET CHEW PO SCH ×4 (08:36→21:38)
[2016-12-03] MEDS: METOCLOPRAMIDE HCL 10MG/2ML VIAL IV SCH ×3 (08:36→17:39)
[2016-12-03] MEDS: DOCUSATE SODIUM 250MG CAPSULE PO SCH ×2 (08:36→17:39)
[2016-12-03] MEDS: FOLIC ACID 1MG TABLET PO SCH (08:36)
[2016-12-03] MEDS: SENNOSIDES/DOCUSATE SOD 8.6/50MG TABLET PO SCH ×2 (08:36→17:39)
[2016-12-03] MEDS ORDERED: FOLIC ACID 1MG TABLET PO SCH (10:00)
[2016-12-03 10:02] LABS: AMMONIA 56 uMol/L (<32)
[2016-12-03] MEDS: MORPHINE SULFATE 4 MG/ML CPJ (NOT FOR IM USE) IV PRN ×2 (17:40→20:15)
[2016-12-03] MEDS ORDERED: MAGNESIUM CITRATE 300ML SOLUTION PO NR (17:45)
[2016-12-03] MEDS: ENOXAPARIN 40MG/0.4ML SYR SUBCUT SCH (23:41)
[2016-12-04] VITALS (10 sets, daily range): BP systolic 107–134; BP diastolic 59–83
[2016-12-04] MEDS: MORPHINE SULFATE 4 MG/ML CPJ (NOT FOR IM USE) IV PRN ×6 (00:42→23:49)
[2016-12-04] MEDS: LORAZEPAM 2MG/ML CPJ IV PRN ×9 (00:52→23:48)
[2016-12-04] MEDS: DIPHENHYDRAMINE 50MG/ML VIAL IV PRN ×9 (00:52→23:48)
[2016-12-04] MEDS: HYDROMORPHONE HCL/PF 2MG/ML CPJ IV PRN ×9 (00:53→23:50)
[2016-12-04] MEDS: NYSTATIN 100,000 UNITS/ML 5ML UDC SSW SCH ×4 (06:52→23:45)
[2016-12-04] MEDS: OMEPRAZOLE 20MG CAPSULE EXTENDED RELEASE PO SCH ×2 (06:52→17:52)
[2016-12-04] MEDS: MORPHINE SULFATE 15MG TABLET SR PO SCH ×3 (06:53→21:24)
[2016-12-04] MEDS: METRONIDAZOLE 500MG TABLET PO SCH ×2 (07:03→14:00)
[2016-12-04] MEDS: METOCLOPRAMIDE HCL 10MG/2ML VIAL IV SCH ×3 (08:20→17:53)
[2016-12-04] MEDS: SENNOSIDES/DOCUSATE SOD 8.6/50MG TABLET PO SCH ×2 (08:21→17:52)
[2016-12-04] MEDS: DOCUSATE SODIUM 250MG CAPSULE PO SCH ×2 (08:21→17:55)
[2016-12-04] MEDS: SIMETHICONE 80MG TABLET CHEW PO SCH ×4 (08:21→21:00)
[2016-12-04] MEDS: FOLIC ACID 1MG TABLET PO SCH (08:21)
[2016-12-04 12:11] LABS: HEMATOCRIT. 33.6 % (36.0-48.0); HEMOGLOBIN. 11.4 g/dL (12.0-16.0); MEAN CORPUSCULAR HEMOGLOBIN 29.9 pg (28.0-32.0); MEAN CORPUSCULAR VOLUME 88.5 fL (81.0-99.0)
[2016-12-04 12:12] LABS: BASOPHILS % 0.8 % (0.0-2.0); EOSINOPHILS % 2.3 % (0.0-5.0); LYMPHOCYTES % 33.4 % (20.0-50.0); MEAN PLATELET VOLUME 8.7 fl (7.4-10.4); MONOCYTES % 12.7 % (2.0-8.0); NEUTROPHILS % 50.8 % (40.0-76.0); PLATELET 359 x1000/uL (130-400); RED CELL DISTRIBUTION WIDTH 18.6 % (11.6-14.6)
[2016-12-04 12:14] LABS: CHLORIDE 107 mEq/L (98-107)
[2016-12-04] MEDS ORDERED: FUROSEMIDE 40MG/4ML VIAL IVP PRN (12:15)
[2016-12-04 12:24] LABS: CARBON DIOXIDE 23 mEq/L (21-32)
[2016-12-04] MEDS: SODIUM CHLORIDE 0.9% 1,000 ML IV SCH ×2 (14:03→21:30)
[2016-12-04] MEDS: ENOXAPARIN 40MG/0.4ML SYR SUBCUT SCH (23:45)
[2016-12-05] VITALS (12 sets, daily range): BP systolic 102–122; BP diastolic 57–86
[2016-12-05] MEDS: DIPHENHYDRAMINE 50MG/ML VIAL IV PRN ×7 (03:00→20:26)
[2016-12-05] MEDS: LORAZEPAM 2MG/ML CPJ IV PRN ×7 (03:00→20:28)
[2016-12-05] MEDS: HYDROMORPHONE HCL/PF 2MG/ML CPJ IV PRN ×7 (03:01→20:28)
[2016-12-05] MEDS: MORPHINE SULFATE 4 MG/ML CPJ (NOT FOR IM USE) IV PRN ×5 (03:02→13:23)
[2016-12-05] MEDS: SODIUM CHLORIDE 0.9% 1,000 ML IV SCH ×2 (04:39→20:29)
[2016-12-05] MEDS: MORPHINE SULFATE 15MG TABLET SR PO SCH ×3 (06:11→21:47)
[2016-12-05] MEDS: NYSTATIN 100,000 UNITS/ML 5ML UDC SSW SCH ×3 (06:11→17:59)
[2016-12-05] MEDS ORDERED: MORPHINE SULFATE 4 MG/ML CPJ (NOT FOR IM USE) IV SCH (08:00)
[2016-12-05] MEDS: SENNOSIDES/DOCUSATE SOD 8.6/50MG TABLET PO SCH ×2 (08:17→16:23)
[2016-12-05] MEDS: DOCUSATE SODIUM 250MG CAPSULE PO SCH ×2 (08:18→16:23)
[2016-12-05] MEDS: SIMETHICONE 80MG TABLET CHEW PO SCH ×4 (08:18→21:00)
[2016-12-05] MEDS: OMEPRAZOLE 20MG CAPSULE EXTENDED RELEASE PO SCH ×2 (08:18→17:59)
[2016-12-05] MEDS: FOLIC ACID 1MG TABLET PO SCH (08:18)
[2016-12-05] MEDS: METOCLOPRAMIDE HCL 10MG/2ML VIAL IV SCH ×3 (08:20→17:59)
[2016-12-05] MEDS ORDERED: HYDROMORPHONE HCL/PF 2MG/ML CPJ IV PRN (16:00)
[2016-12-05] MEDS: OXYCODONE HCL 5MG TABLET PO PRN ×2 (18:01→21:46)
[2016-12-05] MEDS: LACTULOSE 20G/30ML UDC PO PRN (18:11)
[2016-12-05] MEDS ORDERED: LORAZEPAM 2MG/ML CPJ IV NR (21:00)
[2016-12-06] VITALS (13 sets, daily range): BP systolic 97–138; BP diastolic 49–81
[2016-12-06] MEDS: NYSTATIN 100,000 UNITS/ML 5ML UDC SSW SCH ×4 (00:03→18:39)
[2016-12-06] MEDS: ENOXAPARIN 40MG/0.4ML SYR SUBCUT SCH ×2 (00:03→23:04)
[2016-12-06] MEDS: DIPHENHYDRAMINE 50MG/ML VIAL IV PRN ×8 (00:03→23:05)
[2016-12-06] MEDS: LORAZEPAM 2MG/ML CPJ IV PRN ×8 (00:06→23:05)
[2016-12-06] MEDS: HYDROMORPHONE HCL/PF 2MG/ML CPJ IV PRN ×8 (00:11→23:06)
[2016-12-06] MEDS: MORPHINE SULFATE 4 MG/ML CPJ (NOT FOR IM USE) IV PRN ×6 (00:13→18:40)
[2016-12-06] MEDS: OXYCODONE HCL 5MG TABLET PO PRN ×4 (01:39→20:09)
[2016-12-06] MEDS: MORPHINE SULFATE 15MG TABLET SR PO SCH ×3 (05:48→21:47)
[2016-12-06] MEDS: METOCLOPRAMIDE HCL 10MG/2ML VIAL IV SCH ×3 (08:24→18:39)
[2016-12-06] MEDS: OMEPRAZOLE 20MG CAPSULE EXTENDED RELEASE PO SCH (08:24)
[2016-12-06] MEDS: SIMETHICONE 80MG TABLET CHEW PO SCH ×4 (08:25→21:43)
[2016-12-06] MEDS: FOLIC ACID 1MG TABLET PO SCH (08:25)
[2016-12-06] MEDS: DOCUSATE SODIUM 250MG CAPSULE PO SCH ×2 (08:25→18:38)
[2016-12-06] MEDS: SENNOSIDES/DOCUSATE SOD 8.6/50MG TABLET PO SCH ×2 (08:25→18:39)
[2016-12-06 11:40] LABS: BASOPHILS % 0.4 % (0.0-2.0); EOSINOPHILS % 2.3 % (0.0-5.0); HEMATOCRIT. 31.3 % (36.0-48.0); HEMOGLOBIN. 10.2 g/dL (12.0-16.0); MEAN CORPUSCULAR HEMOGLOBIN 28.9 pg (28.0-32.0); MEAN CORPUSCULAR VOLUME 88.2 fL (81.0-99.0); MEAN PLATELET VOLUME 8.2 fl (7.4-10.4); NEUTROPHILS % 50.3 % (40.0-76.0); PLATELET 338 x1000/uL (130-400); RED BLOOD CELL COUNT 3.54 mill/uL (4.2-5.4); RED CELL DISTRIBUTION WIDTH 18.1 % (11.6-14.6)
[2016-12-06 11:55] LABS: CARBON DIOXIDE 27 mEq/L (21-32); CHLORIDE 105 mEq/L (98-107)
[2016-12-06] MEDS: SODIUM CHLORIDE 0.9% 1,000 ML IV SCH (12:34)
[2016-12-06] MEDS: LIDOCAINE HCL 2% JELLY 5ML TOP SCH ×2 (12:34→18:20)
[2016-12-06] MEDS ORDERED: LIDOCAINE HCL 4% CREAM 76GM TUBE TP SCH (13:00)
[2016-12-06] MEDS: FAMOTIDINE 20MG TABLET PO SCH (21:43)
[2016-12-07] VITALS (12 sets, daily range): BP systolic 102–128; BP diastolic 54–74
[2016-12-07] MEDS: MORPHINE SULFATE 4 MG/ML CPJ (NOT FOR IM USE) IV PRN ×7 (01:05→20:01)
[2016-12-07] MEDS: DIPHENHYDRAMINE 50MG/ML VIAL IV PRN ×4 (02:07→10:56)
[2016-12-07] MEDS: LORAZEPAM 2MG/ML CPJ IV PRN ×4 (02:07→10:56)
[2016-12-07] MEDS: HYDROMORPHONE HCL/PF 2MG/ML CPJ IV PRN ×4 (02:09→11:00)
[2016-12-07] MEDS: SODIUM CHLORIDE 0.9% 1,000 ML IV SCH ×2 (03:40→18:28)
[2016-12-07] MEDS: MORPHINE SULFATE 15MG TABLET SR PO SCH ×3 (05:16→22:37)
[2016-12-07] MEDS: OXYCODONE HCL 5MG TABLET PO PRN ×2 (06:59→12:01)
[2016-12-07 07:41] LABS: BASOPHILS % 0.3 % (0.0-2.0); EOSINOPHILS % 2.5 % (0.0-5.0); HEMATOCRIT. 33.1 % (36.0-48.0); HEMOGLOBIN. 11.2 g/dL (12.0-16.0); LYMPHOCYTES % 35.3 % (20.0-50.0); MEAN CORPUSCULAR HEMOGLOBIN 29.6 pg (28.0-32.0); MEAN CORPUSCULAR VOLUME 87.3 fL (81.0-99.0); MEAN PLATELET VOLUME 8.9 fl (7.4-10.4); MONOCYTES % 13.9 % (2.0-8.0); PLATELET 313 x1000/uL (130-400); RED BLOOD CELL COUNT 3.79 mill/uL (4.2-5.4); RED CELL DISTRIBUTION WIDTH 18.2 % (11.6-14.6)
[2016-12-07] MEDS: FOLIC ACID 1MG TABLET PO SCH (08:04)
[2016-12-07] MEDS: SENNOSIDES/DOCUSATE SOD 8.6/50MG TABLET PO SCH ×2 (08:04→16:47)
[2016-12-07] MEDS: DOCUSATE SODIUM 250MG CAPSULE PO SCH ×2 (08:04→16:47)
[2016-12-07] MEDS: SIMETHICONE 80MG TABLET CHEW PO SCH ×4 (08:04→20:58)
[2016-12-07] MEDS: FAMOTIDINE 20MG TABLET PO SCH ×2 (08:05→20:58)
[2016-12-07] MEDS: METOCLOPRAMIDE HCL 10MG/2ML VIAL IV SCH ×3 (08:08→16:55)
[2016-12-07 08:09] LABS: CARBON DIOXIDE 25 mEq/L (21-32); CHLORIDE 104 mEq/L (98-107)
[2016-12-07] MEDS ORDERED: OXYCODONE HCL 5MG TABLET PO PRN (12:45)
[2016-12-07] MEDS ORDERED: DIPHENHYDRAMINE 50MG/ML VIAL IV PRN ×2 (13:45)
[2016-12-07] MEDS ORDERED: HYDROMORPHONE HCL/PF 2MG/ML CPJ IV PRN ×3 (13:45→14:15)
[2016-12-07] MEDS ORDERED: DIPHENHYDRAMINE 50MG/ML VIAL IV SCH (13:45)
[2016-12-07] MEDS: HYDROMORPHONE HCL/PF 2MG/ML CPJ IV SCH ×4 (13:52→22:35)
[2016-12-07] MEDS: DIPHENHYDRAMINE 50MG/ML VIAL IV SCH ×4 (13:53→22:32)
[2016-12-07] MEDS: LORAZEPAM 2MG/ML CPJ IV SCH ×4 (13:53→22:31)
[2016-12-07] MEDS ORDERED: HYDROMORPHONE HCL/PF 2MG/ML CPJ IV SCH (14:15)
[2016-12-07] MEDS ORDERED: LORAZEPAM 2MG/ML CPJ IV SCH (14:15)
[2016-12-07] MEDS: OXYCODONE HCL 5MG TABLET PO SCH ×4 (14:53→23:55)
[2016-12-07] MEDS ORDERED: NALOXONE HCL 0.4 MG/ML 1ML VIAL IV PRN (18:00)
[2016-12-07] MEDS: ENOXAPARIN 40MG/0.4ML SYR SUBCUT SCH (20:57)
[2016-12-07] MEDS ORDERED: LORAZEPAM 2MG/ML CPJ IV PRN (21:00)
[2016-12-07] MEDS ORDERED: ZOLPIDEM TARTRATE 5MG TABLET PO PRN (21:00)
[2016-12-08] VITALS (12 sets, daily range): BP systolic 101–121; BP diastolic 41–70
[2016-12-08] MEDS: DIPHENHYDRAMINE 50MG/ML VIAL IV SCH ×8 (01:46→22:42)
[2016-12-08] MEDS: HYDROMORPHONE HCL/PF 2MG/ML CPJ IV SCH ×8 (01:48→22:42)
[2016-12-08] MEDS: LORAZEPAM 2MG/ML CPJ IV SCH ×8 (01:49→22:42)
[2016-12-08] MEDS: MORPHINE SULFATE 4 MG/ML CPJ (NOT FOR IM USE) IV PRN ×4 (02:50→20:14)
[2016-12-08] MEDS: OXYCODONE HCL 5MG TABLET PO SCH ×7 (02:51→21:44)
[2016-12-08] MEDS: MORPHINE SULFATE 15MG TABLET SR PO SCH (05:59)
[2016-12-08] MEDS: SIMETHICONE 80MG TABLET CHEW PO SCH ×4 (07:58→21:44)
[2016-12-08] MEDS: METOCLOPRAMIDE HCL 10MG/2ML VIAL IV SCH ×3 (09:48→17:18)
[2016-12-08] MEDS: SENNOSIDES/DOCUSATE SOD 8.6/50MG TABLET PO SCH ×2 (09:51→17:18)
[2016-12-08] MEDS: SODIUM CHLORIDE 0.9% 1,000 ML IV SCH (09:51)
[2016-12-08] MEDS: FAMOTIDINE 20MG TABLET PO SCH ×2 (09:51→21:44)
[2016-12-08] MEDS: DOCUSATE SODIUM 250MG CAPSULE PO SCH ×2 (09:51→17:18)
[2016-12-08] MEDS: FOLIC ACID 1MG TABLET PO SCH (09:51)
[2016-12-08] MEDS: MORPHINE SULFATE 30MG TABLET SR PO SCH ×2 (14:16→22:40)
[2016-12-08] MEDS: ENOXAPARIN 40MG/0.4ML SYR SUBCUT SCH (21:47)
[2016-12-09] VITALS (13 sets, daily range): BP systolic 97–117; BP diastolic 60–78
[2016-12-09] MEDS: OXYCODONE HCL 5MG TABLET PO SCH ×9 (00:54→23:47)
[2016-12-09] MEDS: LORAZEPAM 2MG/ML CPJ IV SCH ×8 (01:36→22:50)
[2016-12-09] MEDS: DIPHENHYDRAMINE 50MG/ML VIAL IV SCH ×8 (01:45→22:50)
[2016-12-09] MEDS: MORPHINE SULFATE 4 MG/ML CPJ (NOT FOR IM USE) IV PRN ×8 (01:49→23:47)
[2016-12-09] MEDS: HYDROMORPHONE HCL/PF 2MG/ML CPJ IV SCH ×8 (01:49→22:50)
[2016-12-09] MEDS: SODIUM CHLORIDE 0.9% 1,000 ML IV SCH (05:06)
[2016-12-09] MEDS: MORPHINE SULFATE 30MG TABLET SR PO SCH ×3 (06:05→22:48)
[2016-12-09 07:20] LABS: CARBON DIOXIDE 26 mEq/L (21-32); CHLORIDE 105 mEq/L (98-107)
[2016-12-09 07:50] LABS: BASOPHILS % 0.7 % (0.0-2.0); EOSINOPHILS % 3.2 % (0.0-5.0); HEMATOCRIT. 28.9 % (36.0-48.0); LYMPHOCYTES % 38.2 % (20.0-50.0); MEAN CORPUSCULAR HEMOGLOBIN 30.3 pg (28.0-32.0); MEAN CORPUSCULAR VOLUME 87.8 fL (81.0-99.0); MEAN PLATELET VOLUME 8.8 fl (7.4-10.4); MONOCYTES % 14.2 % (2.0-8.0); NEUTROPHILS % 43.7 % (40.0-76.0); PLATELET 325 x1000/uL (130-400); RED BLOOD CELL COUNT 3.29 mill/uL (4.2-5.4); RED CELL DISTRIBUTION WIDTH 17.9 % (11.6-14.6)
[2016-12-09] MEDS: LORAZEPAM 2MG/ML CPJ IV PRN (07:52)
[2016-12-09] MEDS: SIMETHICONE 80MG TABLET CHEW PO SCH ×4 (07:53→20:51)
[2016-12-09] MEDS: FOLIC ACID 1MG TABLET PO SCH (08:49)
[2016-12-09] MEDS: SENNOSIDES/DOCUSATE SOD 8.6/50MG TABLET PO SCH ×2 (08:49→17:42)
[2016-12-09] MEDS: DOCUSATE SODIUM 250MG CAPSULE PO SCH ×2 (08:49→17:42)
[2016-12-09] MEDS: FAMOTIDINE 20MG TABLET PO SCH ×2 (08:49→20:50)
[2016-12-09] MEDS: METOCLOPRAMIDE HCL 10MG/2ML VIAL IV SCH ×3 (08:50→17:44)
[2016-12-09] MEDS: LACTULOSE 20G/30ML UDC PO PRN (17:48)
[2016-12-09] MEDS: ENOXAPARIN 40MG/0.4ML SYR SUBCUT SCH (22:48)
[2016-12-10] VITALS (15 sets, daily range): BP systolic 98–143; BP diastolic 23–73
[2016-12-10] MEDS: LORAZEPAM 2MG/ML CPJ IV PRN (00:35)
[2016-12-10] MEDS: SODIUM CHLORIDE 0.9% 1,000 ML IV SCH (00:36)
[2016-12-10] MEDS: DIPHENHYDRAMINE 50MG/ML VIAL IV SCH ×8 (01:51→23:08)
[2016-12-10] MEDS: HYDROMORPHONE HCL/PF 2MG/ML CPJ IV SCH ×8 (01:51→23:09)
[2016-12-10] MEDS: LORAZEPAM 2MG/ML CPJ IV SCH ×8 (01:51→23:08)
[2016-12-10] MEDS: OXYCODONE HCL 5MG TABLET PO SCH ×9 (02:50→22:13)
[2016-12-10] MEDS: MORPHINE SULFATE 4 MG/ML CPJ (NOT FOR IM USE) IV PRN ×6 (02:51→23:10)
[2016-12-10] MEDS: MORPHINE SULFATE 30MG TABLET SR PO SCH ×3 (06:40→22:12)
[2016-12-10] MEDS: DOCUSATE SODIUM 250MG CAPSULE PO SCH ×2 (09:35→19:07)
[2016-12-10] MEDS: SENNOSIDES/DOCUSATE SOD 8.6/50MG TABLET PO SCH ×2 (09:35→19:07)
[2016-12-10] MEDS: SIMETHICONE 80MG TABLET CHEW PO SCH ×4 (09:35→20:34)
[2016-12-10] MEDS: FOLIC ACID 1MG TABLET PO SCH (09:44)
[2016-12-10] MEDS: METOCLOPRAMIDE HCL 10MG/2ML VIAL IV SCH ×3 (09:44→17:20)
[2016-12-10] MEDS: FAMOTIDINE 20MG TABLET PO SCH ×2 (09:46→20:34)
[2016-12-10] MEDS ORDERED: MAGNESIUM CITRATE 300ML SOLUTION PO NR (13:00)
[2016-12-10] MEDS ORDERED: OXYCODONE HCL 20MG TABLET SR 12HR PO PRN (14:45)
[2016-12-10] MEDS: ENOXAPARIN 40MG/0.4ML SYR SUBCUT SCH (20:35)
[2016-12-11] VITALS (13 sets, daily range): BP systolic 101–120; BP diastolic 53–74
[2016-12-11] MEDS: LORAZEPAM 2MG/ML CPJ IV PRN (00:30)
[2016-12-11] MEDS: DIPHENHYDRAMINE 50MG/ML VIAL IV SCH ×8 (02:25→23:00)
[2016-12-11] MEDS: LORAZEPAM 2MG/ML CPJ IV SCH ×8 (02:25→23:00)
[2016-12-11] MEDS: HYDROMORPHONE HCL/PF 2MG/ML CPJ IV SCH ×8 (02:26→23:01)
[2016-12-11] MEDS: OXYCODONE HCL 5MG TABLET PO SCH ×8 (02:28→23:02)
[2016-12-11] MEDS: MORPHINE SULFATE 4 MG/ML CPJ (NOT FOR IM USE) IV PRN ×3 (04:21→15:04)
[2016-12-11] MEDS: MORPHINE SULFATE 30MG TABLET SR PO SCH ×3 (09:00→23:00)
[2016-12-11] MEDS: DOCUSATE SODIUM 250MG CAPSULE PO SCH ×2 (09:01→17:10)
[2016-12-11] MEDS: FAMOTIDINE 20MG TABLET PO SCH ×2 (09:01→20:11)
[2016-12-11] MEDS: FOLIC ACID 1MG TABLET PO SCH (09:01)
[2016-12-11] MEDS: SENNOSIDES/DOCUSATE SOD 8.6/50MG TABLET PO SCH ×2 (09:01→17:10)
[2016-12-11] MEDS: SIMETHICONE 80MG TABLET CHEW PO SCH ×4 (09:01→20:11)
[2016-12-11] MEDS: METOCLOPRAMIDE HCL 10MG/2ML VIAL IV SCH ×3 (09:10→17:12)
[2016-12-11] MEDS: LACTULOSE 20G/30ML UDC PO PRN (14:17)
[2016-12-11] MEDS: ENOXAPARIN 40MG/0.4ML SYR SUBCUT SCH (20:11)
[2016-12-11] MEDS ORDERED: LORAZEPAM 2MG/ML CPJ IV PRN (21:00)
[2016-12-12] VITALS (10 sets, daily range): BP systolic 95–130; BP diastolic 50–76
[2016-12-12] MEDS: MORPHINE SULFATE 4 MG/ML CPJ (NOT FOR IM USE) IV PRN ×9 (00:27→23:23)
[2016-12-12] MEDS: DIPHENHYDRAMINE 50MG/ML VIAL IV SCH ×8 (02:20→23:17)
[2016-12-12] MEDS: HYDROMORPHONE HCL/PF 2MG/ML CPJ IV SCH ×7 (02:20→20:39)
[2016-12-12] MEDS: LORAZEPAM 2MG/ML CPJ IV SCH ×7 (02:20→20:38)
[2016-12-12] MEDS: OXYCODONE HCL 5MG TABLET PO SCH ×7 (02:21→21:08)
[2016-12-12] MEDS: MORPHINE SULFATE 30MG TABLET SR PO SCH ×3 (05:32→22:00)
[2016-12-12 07:51] LABS: CARBON DIOXIDE 26 mEq/L (21-32); CHLORIDE 102 mEq/L (98-107)
[2016-12-12 08:30] LABS: BASOPHILS % 1.1 % (0.0-2.0); HEMOGLOBIN. 9.4 g/dL (12.0-16.0); LYMPHOCYTES % 24.9 % (20.0-50.0); MEAN CORPUSCULAR HEMOGLOBIN 29.3 pg (28.0-32.0); MEAN CORPUSCULAR VOLUME 86.7 fL (81.0-99.0); MEAN PLATELET VOLUME 8.9 fl (7.4-10.4); MONOCYTES % 13.7 % (2.0-8.0); NEUTROPHILS % 58.3 % (40.0-76.0); PLATELET 380 x1000/uL (130-400); RED BLOOD CELL COUNT 3.22 mill/uL (4.2-5.4)
[2016-12-12] MEDS: METOCLOPRAMIDE HCL 10MG/2ML VIAL IV SCH ×3 (08:40→17:38)
[2016-12-12] MEDS: LACTULOSE 20G/30ML UDC PO PRN (08:40)
[2016-12-12] MEDS: DOCUSATE SODIUM 250MG CAPSULE PO SCH ×2 (08:41→17:38)
[2016-12-12] MEDS: FAMOTIDINE 20MG TABLET PO SCH ×2 (08:41→23:16)
[2016-12-12] MEDS: FOLIC ACID 1MG TABLET PO SCH (08:41)
[2016-12-12] MEDS: SENNOSIDES/DOCUSATE SOD 8.6/50MG TABLET PO SCH ×2 (08:41→17:39)
[2016-12-12] MEDS: SIMETHICONE 80MG TABLET CHEW PO SCH ×4 (08:41→23:16)
[2016-12-12] MEDS: LORAZEPAM 2MG/ML CPJ IV PRN (23:18)
[2016-12-12] MEDS: HYDROMORPHONE HCL/PF 2MG/ML CPJ IV PRN (23:23)
[2016-12-12] MEDS: ENOXAPARIN 40MG/0.4ML SYR SUBCUT SCH (23:36)
[2016-12-13] VITALS: BP 98/64
[2016-12-13] MEDS: OXYCODONE HCL 5MG TABLET PO SCH ×5 (01:05→15:07)
[2016-12-13] MEDS: LORAZEPAM 2MG/ML CPJ IV PRN (02:34)
[2016-12-13] MEDS: DIPHENHYDRAMINE 50MG/ML VIAL IV SCH ×5 (02:42→14:22)
[2016-12-13] MEDS: HYDROMORPHONE HCL/PF 2MG/ML CPJ IV PRN ×3 (02:47→11:29)
[2016-12-13] MEDS: MORPHINE SULFATE 4 MG/ML CPJ (NOT FOR IM USE) IV PRN ×4 (02:52→11:52)
[2016-12-13 04:00] VITALS: BP 98/51
[2016-12-13] MEDS: SIMETHICONE 80MG TABLET CHEW PO SCH ×2 (07:50→12:50)
[2016-12-13 08:00] VITALS: BP 94/55
[2016-12-13] MEDS: MORPHINE SULFATE 30MG TABLET SR PO SCH ×2 (09:00→14:22)
[2016-12-13] MEDS: FOLIC ACID 1MG TABLET PO SCH (09:16)
[2016-12-13] MEDS: FAMOTIDINE 20MG TABLET PO SCH (09:16)
[2016-12-13] MEDS: SENNOSIDES/DOCUSATE SOD 8.6/50MG TABLET PO SCH (09:16)
[2016-12-13] MEDS: DOCUSATE SODIUM 250MG CAPSULE PO SCH (09:16)
[2016-12-13] MEDS: METOCLOPRAMIDE HCL 10MG/2ML VIAL IV SCH ×2 (09:17→13:00)
[2016-12-13] MEDS ORDERED: HEPARIN SODIUM 1,000 UNIT/1ML VIAL IV NR (13:45)
[2016-12-13] MEDS ORDERED: HEPARIN 5000 UNITS/ML VIAL IV NR (14:00)
[2016-12-13] MEDS: HEPARIN 100 UNITS/1 ML VIAL IVF NR ×2 (14:50→14:54)
[2016-12-13 16:00] VITALS: BP 108/72
== END 2016-12-13 17:00 | disposition home or self-care (01) | DRG 781 ==
LOC: ER 11:06 → 8WST 13:03 → EDBEDREQSVC 13:04 → EDBEDREQ 13:04 → ENRESERV 16:02 → CANBEDREQ 16:12 → 8WST 11-23 18:56 → 5EST 11-29 14:17 → 6EST 12-12 18:21
PROVIDERS: ADMIT Internal Medicine; ATTEND Internal Medicine
PROC: 30233N1 Transfusion of Nonautologous Red Blood Cells into Peripheral Vein, Percutaneous Approach (ICD-10-PCS; principal; 2016-11-29)
DX: O99.011 Anemia complicating pregnancy, first trimester (principal); D57.00 Hb-SS disease with crisis, unspecified; O99.321 Drug use complicating pregnancy, first trimester; O98.811 Other maternal infectious and parasitic diseases complicating pregnancy, first trimester; R65.10 Systemic inflammatory response syndrome (SIRS) of non-infectious origin without acute organ dysfunction; O99.611 Diseases of the digestive system complicating pregnancy, first trimester; O99.351 Diseases of the nervous system complicating pregnancy, first trimester; R73.9 Hyperglycemia, unspecified; K29.00 Acute gastritis without bleeding; K29.50 Unspecified chronic gastritis without bleeding; R74.0 Nonspecific elevation of levels of transaminase and lactic acid dehydrogenase [LDH]; T40.605A Adverse effect of unspecified narcotics, initial encounter; K59.00 Constipation, unspecified; M79.89 Other specified soft tissue disorders; G35 Multiple sclerosis; F19.90 Other psychoactive substance use, unspecified, uncomplicated; Z3A.01 Less than 8 weeks gestation of pregnancy; Z90.49 Acquired absence of other specified parts of digestive tract; Z90.81 Acquired absence of spleen; Z76.5 Malingerer [conscious simulation]; Y92.89 Other specified places as the place of occurrence of the external cause
CPT/HCPCS: 36415; 74000; 74177; 76801; 80048; 80053; 80061; 80305; 81001; 81025; 82140; 82550; 82553; 82607; 82728; 83021; 83036; 83540; 83550; 83690; 84443; 84484; 84702; 84703; 85007; 85025; 85027; 85044; 85610; 85660; 86705; 86709; 86803; 86850; 86900; 86920; 87040; 87086; 87340; 93005; 93306; 93970; 96374; 96375; 99285; A4216; C1893; C9113; G0482; J0895; J1170; J1200; J1642; J1650; J1885; J1940; J2060; J2270; J2405; J2543; J2765; J7030; J7040; J7050; J8597; P9016; Q9963; Q9967